=== PATIENT | male | born 1975 | race Caucasian/White ===

== ENCOUNTER → 2018-07-17 07:28 | Outpatient (CLI) | payer MEDICAID | END | disposition home or self-care (01) | LOC: D.NM 07:28 | DX: R68.81 Early satiety (principal) ==

== ENCOUNTER 2018-11-16 17:10 | Emergency (ER) | payer MEDICAID ==
[~2018-11-16] VITALS: Ht 182.9 cm; Wt 81.8 kg
[2018-11-16] MEDS ORDERED: MUSCLE RELAXER (17:21)
[2018-11-16] MEDS ORDERED: SLEEPING PILL (17:21)
[2018-11-16 17:46] LABS: BASOPHILS 0.8 % (0-2); EOSINOPHILS 3.3 % (0-7); HEMATOCRIT 47.8 % (42.0-54.0); HEMOGLOBIN 16.7 g/dL (13.5-17.5); IMMATURE GRANULOCYTES 0.4 % (0-5); LYMPHOCYTES 22.4 % (15-50); MCH 33.3 pg (26.0-34.0); MCHC 34.9 g/dL (31.0-37.0); MCV 95.2 fL (80.0-100.0); MEAN PLATELET VOLUME 10.3 fL (7.4-10.4); MONOCYTES 5.8 % (2-11); NEUTROPHILS 67.3 % (40-80); PLATELET COUNT 244 10x3/uL (130-400); RBC 5.02 10x6/uL (4.20-6.10); RDW 13.3 % (11.5-14.5); WBC 11.8 10x3/uL (4.8-10.8)
[2018-11-16 18:00] LABS: APTT 27.8 SECONDS (22.8-39.4); INR 1.02 (0.85-1.17); PROTIME 12.9 SECONDS (11.6-15.0)
[2018-11-16 18:15] LABS: ALBUMIN 3.6 g/dL (3.4-5.0); ALKALINE PHOSPHATASE 121 U/L (46-116); ALT (SGPT) 30 U/L (10-68); BILIRUBIN - TOTAL 0.62 mg/dL (0.2-1.3); CALC OSMOLALITY 276 mosm/kg (275-300); CALCIUM 8.6 mg/dL (8.5-10.1); CARBON DIOXIDE 26.4 mmol/L (21.0-32.0); CHLORIDE - SERUM 104 mmol/L (98-107); CREATININE - SERUM 0.9 mg/dL (0.6-1.3); GLUCOSE 95 mg/dL (74-106); POTASSIUM - SERUM 3.8 mmol/L (3.5-5.1); PROTEIN - SERUM 7.5 g/dL (6.4-8.2); SODIUM 140 mmol/L (136-145); UREA NITROGEN 6 mg/dL (7-18); eGFR NON AFRICAN AMERICAN > 90 mL/min (90-120)
[2018-11-16 18:16] LABS: CKMB 0.2 U/L (0.0-3.6); CREATINE KINASE 27 UL (21-232); MAGNESIUM - SERUM 1.9 mg/dL (1.8-2.4)
[2018-11-16 18:17] LABS: TROPONIN-I < 0.017 ng/mL (0.000-0.060)
== END 2018-11-16 21:36 | disposition home or self-care (01) ==
LOC: D.ER 17:10
PROVIDERS: Emergency Medicine
DX: R07.9 Chest pain, unspecified (principal)

== ENCOUNTER 2019-10-21 10:09 | Emergency (ER) | payer MEDICAID ==
[~2019-10-21] VITALS: Ht 182.9 cm; Wt 86.4 kg
[~2019-10-21 10:09] MED LIST: MUSCLE RELAXER; SLEEPING PILL
[2019-10-21 10:32] VITALS: Ht 182.9 cm; Wt 86.4 kg
[2019-10-21] MEDS ORDERED: OMEPRAZOLE40 MG (10:59)
[2019-10-21] MEDS ORDERED: NEURONTIN 300300 MG (11:00)
[2019-10-21] MEDS ORDERED: CYMBALTA60 MG PO (11:00)
[2019-10-21 11:06] LABS: BASOPHILS 0.8 % (0-2); EOSINOPHILS 3.9 % (0-7); HEMOGLOBIN 17.5 g/dL (13.5-17.5); IMMATURE GRANULOCYTES 0.7 % (0-5); LYMPHOCYTES 24.2 % (15-50); MCH 33.3 pg (26.0-34.0); MCHC 33.7 g/dL (31.0-37.0); MCV 98.9 fL (80.0-100.0); MEAN PLATELET VOLUME 9.8 fL (7.4-10.4); MONOCYTES 5.8 % (2-11); NEUTROPHILS 64.6 % (40-80); PLATELET COUNT 280 10x3/uL (130-400); RBC 5.26 10x6/uL (4.20-6.10); RDW 13.9 % (11.5-14.5); WBC 11.7 10x3/uL (4.8-10.8)
[2019-10-21 11:32] LABS: CALC OSMOLALITY 277 mosm/kg (275-300); CALCIUM 9.1 mg/dL (8.5-10.1); CHLORIDE - SERUM 103 mmol/L (98-107); GLUCOSE 98 mg/dL (74-106); POTASSIUM - SERUM 3.4 mmol/L (3.5-5.1); SODIUM 140 mmol/L (136-145); UREA NITROGEN 10 mg/dL (7-18); eGFR NON AFRICAN AMERICAN 85 mL/min (90-120)
[2019-10-21 11:36] LABS: ALKALINE PHOSPHATASE 135 U/L (30-120); ALT (SGPT) 22 U/L (10-68); AMYLASE - SERUM 59 U/L (25-115); BILIRUBIN - TOTAL 0.65 mg/dL (0.2-1.3); LIPASE 103 U/L (73-393); PROTEIN - SERUM 7.9 g/dL (6.4-8.2)
[2019-10-21 13:21] LABS: BILIRUBIN NEGATIVE (NEGATIVE); GLUCOSE NEGATIVE (NEGATIVE); KETONE MODERATE mg/dL (NEGATIVE); NITRITE NEGATIVE (NEGATIVE); SPECIFIC GRAVITY 1.015 (1.005-1.020)
[2019-10-21] MEDS ORDERED: ZOFRAN ODT4 MG/UDTAB PO (14:36)
[2019-10-21] MEDS ORDERED: METAMUCIL PACKE1 PKT PO (14:36)
[2019-10-21] MEDS ORDERED: ANUSOL-HC 2.5%30 GM RC (14:36)
[2019-10-21 14:45] VITALS: BP 133/84
== END 2019-10-21 14:46 | disposition home or self-care (01) ==
LOC: D.ER 10:09
PROVIDERS: Emergency Medicine
DX: K64.8 Other hemorrhoids (principal); R19.7 Diarrhea, unspecified; K57.90 Diverticulosis of intestine, part unspecified, without perforation or abscess without bleeding; G62.9 Polyneuropathy, unspecified